=== PATIENT | male | born 1940 | race Asian ===

== ENCOUNTER 2020-04-18 20:22 | Inpatient (IN) | payer MEDICARE, BC ==
[~2020-04-18] VITALS: Ht 165.1 cm; Wt 67.1 kg
[2020-04-18] MEDS ORDERED: LOSARTAN POTASS25 MG ORAL (20:34)
[2020-04-18] MEDS ORDERED: ALPRAZOLAM0.25 MG ORAL (20:34)
[2020-04-18] MEDS ORDERED: Dicyclomine HCl 10mg/5ml oral soln ORAL ONE (20:45)
[2020-04-18] MEDS ORDERED: Lidocaine 2% Visc 15ml soln ORAL ONE (20:45)
[2020-04-18] MEDS ORDERED: Mylanta II UD 30ml ORAL ONE (20:45)
[2020-04-18] MEDS ORDERED: Omnipaque-300 100ml vial INJ PRN (20:45)
[2020-04-18] MEDS ORDERED: Morphine Sulfate 2mg/ml Inj(IV/IM USE ONLY) IVP ONE (20:45)
[2020-04-18 21:06] VITALS: BP 163/94
[2020-04-18 21:21] LABS: APPEARANCE,URINE CLEAR; BASOPHILS % (AUTO) 0.2 % (0.0-2.0); BILIRUBIN, URINE NEGATIVE (NEGATIVE); EOSINOPHILS % (AUTO) 0.1 % (0.0-3.0); GLUCOSE, URINE (UA) NEGATIVE (NEGATIVE); HEMATOCRIT 43.9 % (42.0-52.0); HEMOGLOBIN 14.5 G/DL (14.2-18.0); KETONES,URINE 2+ (NEGATIVE); LEUKOCYTE ESTERASE ,URINE NEGATIVE (NEGATIVE); LYMPHOCYTES % (AUTO) 10.1 % (20.0-45.0); MEAN CORPUSCULAR VOLUME 93 FL (80-99); MONOCYTES % (AUTO) 9.7 % (1.0-10.0); NEUTROPHILS % (AUTO) 79.8 % (45.0-75.0); PH,URINE 5 (4.5-8.0); PLATELET COUNT 137 K/UL (150-450); PROTEIN,URINE NEGATIVE (NEGATIVE); RED CELL DISTRIBUTION WIDTH 12.5 % (11.6-14.8); UROBILINOGEN,URINE NORMAL MG/DL (0.0-1.0); WHITE BLOOD COUNT 6.5 K/UL (4.8-10.8)
[2020-04-18 21:23] LABS: COLOR,URINE YELLOW
[2020-04-18 21:33] LABS: ANION GAP 9 mmol/L (5-15); BLOOD UREA NITROGEN 18 mg/dL (7-18); CALCIUM 9.1 MG/DL (8.5-10.1); CARBON DIOXIDE 26 MMOL/L (21-32); CHLORIDE 102 MMOL/L (98-107); CREATININE 1.7 MG/DL (0.55-1.30); SODIUM 137 MMOL/L (136-145)
[2020-04-18 21:38] LABS: ALANINE AMINOTRANSFERASE 35 U/L (12-78); ALBUMIN 3.9 G/DL (3.4-5.0); ALBUMIN/GLOBULIN RATIO 1.1 (1.0-2.7); ALKALINE PHOSPHATASE 72 U/L (46-116); ASPARTATE AMINO TRANSFERASE 27 U/L (15-37); BILIRUBIN,TOTAL 0.7 MG/DL (0.2-1.0)
[2020-04-18 21:41] LABS: NITRITE,URINE NEGATIVE (NEGATIVE)
--- NOTE | 2020-04-18 22:03 | Diagnostic Imaging Report ---
EXAM: CT Abdomen and Pelvis With Intravenous Contrast CLINICAL HISTORY: ABD PAIN TECHNIQUE: Axial computed tomography images of the abdomen and pelvis with intravenous contrast. CTDI is 4.5 mGy and DLP is 237.0 mGy-cm. One or more of the following dose reduction techniques were used: automated exposure control, adjustment of the mA and/or kV according to patient size, use of iterative reconstruction technique. COMPARISON: None. FINDINGS: Lung bases: Minimal posterior dependent atelectasis. ABDOMEN: Liver: Unremarkable. No mass. Gallbladder and bile ducts: Unremarkable. No calcified stones. No ductal dilation. Pancreas: Unremarkable. No mass. No ductal dilation. Spleen: Unremarkable. No splenomegaly. Adrenals: Unremarkable. No mass. Kidneys and ureters: Right perinephric stranding with mild right hydronephrosis. The right vertebral stranding with mild hydroureter with a stone measuring 3.4 mm at the right UV junction. No specific trace amount of left perinephric stranding otherwise normal left kidney. Stomach and bowel: Decompressed stomach otherwise stomach unremarkable. No hiatal hernia. Mild scattered diverticulosis with no signs of diverticulitis. No obstruction. PELVIS: Appendix: Normal appendix. Bladder: Unremarkable. No mass. Reproductive: Unremarkable as visualized. ABDOMEN and PELVIS: Intraperitoneal space: Unremarkable. No free air. No significant fluid collection. Bones/joints: Multilevel degenerative disease of the spine. Mild anterolisthesis of L4 and L5 with no pars defect. Extensive hypertrophic changes of bilateral facets and ligamenta flava at this level with spinal stenosis. No acute fracture. No dislocation. Soft tissues: Unremarkable. Vasculature: Atherosclerotic disease of aorta with no aneurysm. Lymph nodes: Unremarkable. No enlarged lymph nodes. IMPRESSION: 1. Right-sided hydronephrosis due to a 3.4 mm stone at the right UV junction. 2. No acute appendicitis. No bowel obstruction.
[2020-04-18] MEDS ORDERED: Tamsulosin 0.4mg cap ORAL ONE (22:15)
--- NOTE | 2020-04-18 22:20 | Emergency Room Report ---
History of Present Illness General Chief Complaint: Abdominal Pain Source: Patient Present Illness HPI 79-year-old male presents the ED complaining of abdominal pain and vomiting. Started today. Pain is lower, dull, 9 out of 10, nonradiating. Notes pain with urination. Denies fevers or chills. Denies chest pain or shortness of breath. Denies any diarrhea. No other aggravating relieving factors. 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 Patient History Past Medical History: DM, HTN Past Surgical History: none Pertinent Family History: none Social History: Denies: smoking, alcohol use, drug use Immunizations: UTD Reviewed Nursing Documentation: PMH: Agreed; PSxH: Agreed Nursing Documentation-PM Past Medical History: No History, Except For Hx Hypertension: Yes Hx Diabetes: Yes Review of Systems All Other Systems: negative except mentioned in HPI Physical Exam Vital Signs Date Time Temp Pulse Resp B/P (MAP) Pulse Ox O2 Delivery O2 Flow Rate FiO2 04/18/20 20:28 98.6 91 18 163/94 (117) 97 Room Air Sp02 EP Interpretation: reviewed, normal General Appearance: no apparent distress, alert, GCS 15, non-toxic Head: normocephalic, atraumatic Eyes: bilateral eye normal inspection, bilateral eye PERRL ENT: hearing grossly normal, normal pharynx, no angioedema, normal voice Neck: full range of motion, supple/symm/no masses Respiratory: chest non-tender, lungs clear, normal breath sounds, speaking full sentences Cardiovascular #1: regular rate, rhythm, no edema Cardiovascular #2: 2+ carotid (R), 2+ carotid (L), 2+ radial (R), 2+ radial (L) , 2+ dorsalis pedis (R), 2+ dorsalis pedis (L) Gastrointestinal: normal bowel sounds, soft, non-distended, no guarding, no rebound, tenderness Rectal: deferred Genitourinary: normal inspection, no CVA tenderness Musculoskeletal: back normal, normal range of motion, gait/station normal, non- tender Neurologic: alert, motor strength/tone normal, oriented x3, sensory intact, responsive, speech normal Psychiatric: judgement/insight normal, memory normal, mood/affect normal, no suicidal/homicidal ideation Reflexes: 3+ bicep (R), 3+ bicep (L), 3+ tricep (R), 3+ tricep (L), 3+ knee (R) , 3+ knee (L) Skin: no rash Lymphatic: no adenopathy Medical Decision Making Diagnostic Impression: Primary Impression: Kidney stone Additional Impression: Renal insufficiency ER Course Hospital Course 79 yo M with lower abd pain and vomting Differential diagnosis includes-appendicitis, cholecystitis, kidney stone, pyelonephritis Clinical course Patient placed on stretcher. After initial history and physical I ordered labs , IV fluids, pain medications and CT scan Labs - no leukocytosis, Cr 1.7, LFTs normal, UA - gross blood CT scan shows 3.4mm stone on R UVJ Dr Treadwell (urology) consulted. admitted to Dr wall service. I feel this is a highly complex case requiring extensive working including EKG/ Rhythm strip, Xray/CT/US, Blood/urine lab work, repeat exams while in ED, and administration of strong opiates/narcotics for pain control, admission to hospital or close patient follow up. Diagnosis - kidney stone, renal insufficiency admitted to floor in serious condition Labs Test 04/18/20 21:00 White Blood Count 6.5 K/UL (4.8-10.8) Red Blood Count 4.70 M/UL (4.70-6.10) Hemoglobin 14.5 G/DL (14.2-18.0) Hematocrit 43.9 % (42.0-52.0) Mean Corpuscular Volume 93 FL (80-99) Mean Corpuscular Hemoglobin 30.9 PG (27.0-31.0) Mean Corpuscular Hemoglobin Concent 33.1 G/DL (32.0-36.0) Red Cell Distribution Width 12.5 % (11.6-14.8) Platelet Count 137 K/UL (150-450) Mean Platelet Volume 6.5 FL (6.5-10.1) Neutrophils (%) (Auto) 79.8 % (45.0-75.0) Lymphocytes (%) (Auto) 10.1 % (20.0-45.0) Monocytes (%) (Auto) 9.7 % (1.0-10.0) Eosinophils (%) (Auto) 0.1 % (0.0-3.0) Basophils (%) (Auto) 0.2 % (0.0-2.0) Urine Color Yellow Urine Appearance Clear Urine pH 5 (4.5-8.0) Urine Specific [place] 1.025 (1.005-1.035) Urine Protein Negative (NEGATIVE) Urine Glucose (UA) Negative (NEGATIVE) Urine Ketones 2+ (NEGATIVE) Urine Blood 4+ (NEGATIVE) Urine Nitrite Negative (NEGATIVE) Urine Bilirubin Negative (NEGATIVE) Urine Urobilinogen Normal MG/DL (0.0-1.0) Urine Leukocyte Esterase Negative (NEGATIVE) Urine RBC 0-2 /HPF (0 - 0) Urine WBC 0 /HPF (0 - 0) Urine Squamous Epithelial Cells None /LPF (NONE/OCC) Urine Bacteria Occasional /HPF (NONE) Sodium Level 137 MMOL/L (136-145) Potassium Level 4.0 MMOL/L (3.5-5.1) Chloride Level 102 MMOL/L (98-107) Carbon Dioxide Level 26 MMOL/L (21-32) Anion Gap 9 mmol/L (5-15) Blood Urea Nitrogen 18 mg/dL (7-18) Creatinine 1.7 MG/DL (0.55-1.30) Estimat Glomerular Filtration Rate 39.3 mL/min (>60) Glucose Level 119 MG/DL (74-106) Calcium Level 9.1 MG/DL (8.5-10.1) Total Bilirubin 0.7 MG/DL (0.2-1.0) Aspartate Amino Transf (AST/SGOT) 27 U/L (15-37) Alanine Aminotransferase (ALT/SGPT) 35 U/L (12-78) Alkaline Phosphatase 72 U/L (46-116) Total Protein 7.3 G/DL (6.4-8.2) Albumin 3.9 G/DL (3.4-5.0) Globulin 3.4 g/dL Albumin/Globulin Ratio 1.1 (1.0-2.7) Lipase 129 U/L (73-393) CT/MRI/US Diagnostic Results CT/MRI/US Diagnostic Results : Imaging Test Ordered: CT A/P Impression TECHNIQUE: Axial computed tomography images of the abdomen and pelvis with intravenous contrast. CTDI is 4.5 mGy and DLP is 237.0 mGy-cm. One or more of the following dose reduction techniques were used: automated exposure control, adjustment of the mA and/or kV according to patient size, use of iterative reconstruction technique. COMPARISON: None. FINDINGS: Lung bases: Minimal posterior dependent atelectasis. ABDOMEN: Liver: Unremarkable. No mass. Gallbladder and bile ducts: Unremarkable. No calcified stones. No ductal dilation. Pancreas: Unremarkable. No mass. No ductal dilation. Spleen: Unremarkable. No splenomegaly. Adrenals: Unremarkable. No mass. Kidneys and ureters: Right perinephric stranding with mild right hydronephrosis. The right vertebral stranding with mild hydroureter with a stone measuring 3.4 mm at the right UV junction. No specific trace amount of left perinephric stranding otherwise normal left kidney. Stomach and bowel: Decompressed stomach otherwise stomach unremarkable. No hiatal hernia. Mild scattered diverticulosis with no signs of diverticulitis. No obstruction. PELVIS: Appendix: Normal appendix. Bladder: Unremarkable. No mass. Reproductive: Unremarkable as visualized. ABDOMEN and PELVIS: Intraperitoneal space: Unremarkable. No free air. No significant fluid collection. Bones/joints: Multilevel degenerative disease of the spine. Mild anterolisthesis of L4 and L5 with no pars defect. Extensive hypertrophic changes of bilateral facets and ligamenta flava at this level with spinal stenosis. No acute fracture. No dislocation. Soft tissues: Unremarkable. Vasculature: Atherosclerotic disease of aorta with no aneurysm. Lymph nodes: Unremarkable. No enlarged lymph nodes. IMPRESSION: 1. Right-sided hydronephrosis due to a 3.4 mm stone at the right UV junction. 2. No acute appendicitis. No bowel obstruction. Last Vital Signs Date Time Temp Pulse Resp B/P (MAP) Pulse Ox O2 Delivery O2 Flow Rate FiO2 04/18/20 21:06 91 18 Room Air 04/18/20 21:06 98.6 163/94 97 Status: improved Disposition: ADMITTED INPATIENT Condition: Serious Referrals: NON PHYSICIAN (PCP) Ronak Rubio MD Apr 18, 2020 22:20
[2020-04-18 22:28] VITALS: BP 154/90
[2020-04-18] MEDS ORDERED: HydrALAZINE 25mg tab ORAL PRN (23:00)
[2020-04-18] MEDS ORDERED: Hydromorphone 0.5mg/0.5ml inj IVP PRN (23:00)
[2020-04-18 23:10] VITALS: BP 157/88
[2020-04-18] MEDS ORDERED: Morphine Sulfate 2mg/ml Inj(IV/IM USE ONLY) IVP PRN (23:45)
[2020-04-19] VITALS: BP 161/90
[2020-04-19] MEDS ORDERED: D5NS 1,000 ML IV SCH
[2020-04-19 04:00] VITALS: BP 117/65
[2020-04-19 06:40] LABS: BASOPHILS % (AUTO) 0.4 % (0.0-2.0); EOSINOPHILS % (AUTO) 0.2 % (0.0-3.0); HEMATOCRIT 38.9 % (42.0-52.0); HEMOGLOBIN 12.8 G/DL (14.2-18.0); LYMPHOCYTES % (AUTO) 12.9 % (20.0-45.0); MEAN CORPUSCULAR VOLUME 94 FL (80-99); MONOCYTES % (AUTO) 12.9 % (1.0-10.0); NEUTROPHILS % (AUTO) 73.5 % (45.0-75.0); PLATELET COUNT 125 K/UL (150-450); RED BLOOD COUNT 4.16 M/UL (4.70-6.10); RED CELL DISTRIBUTION WIDTH 11.5 % (11.6-14.8); WHITE BLOOD COUNT 4.6 K/UL (4.8-10.8)
[2020-04-19 07:11] LABS: ALANINE AMINOTRANSFERASE 35 U/L (12-78); ALBUMIN 2.9 G/DL (3.4-5.0); ALKALINE PHOSPHATASE 56 U/L (46-116); ANION GAP 7 mmol/L (5-15); ASPARTATE AMINO TRANSFERASE 28 U/L (15-37); BILIRUBIN,TOTAL 0.8 MG/DL (0.2-1.0); BLOOD UREA NITROGEN 18 mg/dL (7-18); CALCIUM 8.1 MG/DL (8.5-10.1); CARBON DIOXIDE 25 MMOL/L (21-32); CHLORIDE 108 MMOL/L (98-107); CHOLESTEROL 139 MG/DL (< 200); CREATININE 1.7 MG/DL (0.55-1.30); HDL CHOLESTEROL 46 MG/DL (40-60); PHOSPHORUS 3.1 MG/DL (2.5-4.9); POTASSIUM 3.9 MMOL/L (3.5-5.1); SODIUM 140 MMOL/L (136-145); TRIGLYCERIDES 38 MG/DL (30-150)
[2020-04-19 08:00] VITALS: BP 130/76
[2020-04-19] MEDS: Tamsulosin 0.4mg cap ORAL SCH ×2 (08:17→18:21)
[2020-04-19] MEDS: Pantoprazole Inj IVP SCH ×2 (08:17→20:24)
--- NOTE | 2020-04-19 09:17 | Consultation ---
Consult Note Consult Note I am asked to evaluate the patient at the request of Dr. Downs for renal failure. Patient is [place] speaking. Interviewed via food service utility worker. Patient relates she has history of hypertension for the past 2 years. He does not know the name of medication that he is taking. Patient examined. Data reviewed. This is his first hospitalization here at [facility]. Emergency room note: Chief Complaint: Abdominal Pain Source: Patient 79-year-old male presents the ED complaining of abdominal pain and vomiting. Started today. Pain is lower, dull, 9 out of 10, nonradiating. Notes pain with urination. Denies fevers or chills. Denies chest pain or shortness of breath. Denies any diarrhea. No other aggravating relieving factors. Denies any other associated symptoms Allergies: No Known Allergies (Unverified , 04/18/20) COVID-19 Screening Contact w/high risk pt: No Experienced COVID-19 symptoms?: No COVID-19 Testing performed HUMAN SERVICE SPECIALIST: No Past Medical History: DM, HTN Past Medical History: No History, Except For Hx Hypertension: Yes Hx Diabetes: Yes, patient denies history of diabetes mellitus, hemoglobin A1c is within normal limits PHYSICAL EXAMINATION: VITAL SIGNS: Temperature 98, pulse 95, blood pressure 133/76. GENERAL APPEARANCE: No acute distress. HEENT: [place] conjunctivae. HEART: Normal rate. LUNGS: Clear. ABDOMEN: Soft. No costovertebral angle tenderness. EXTREMITIES: No edema. LABORATORY AND DIAGNOSTIC DATA: The patient had a CT scan of the abdomen and pelvis that showed right-sided hydronephrosis with a 2.4 mm stone in the right UV junction. No appendicitis. No bowel obstruction. Sodium 140, potassium 3.9, chloride 108, bicarb 25, BUN 18, creatinine 1.7, glucose is 103, albumin is 2.9. UA showed no wbc, has 4+ blood and ketones 2+. . Assessment/Plan Renal failure: Most likely acute on chronic. History of hypertension. Possible hypertensive nephrosclerosis. Right UV junction 3.4 mm stone. Suggestion: Hydrate Flomax The blood pressure in check Check hemoglobin A1c Pain medication Urology evaluation Per orders CT IMPRESSION: 1. Right-sided hydronephrosis due to a 3.4 mm stone at the right UV junction. 2. No acute appendicitis. No bowel obstruction. Theron Coronel MD Apr 19, 2020 09:17
[2020-04-19] MEDS: D5NS 1,000 ML IV SCH ×2 (11:31→18:21)
[2020-04-19 12:00] VITALS: BP 147/81
--- NOTE | 2020-04-19 13:20 | Diagnostic Imaging Report ---
EXAM: ULTRASOUND US ABD Complete CLINICAL HISTORY: Reason For Exam: ABD PAIN. COMPARISON: None TECHNIQUE: Ultrasound examination of the abdomen includes grayscale images, and color and spectral doppler analysis. FINDINGS: The liver and spleen are homogeneous. The gallbladder is without sludge or stone. Common bile duct measures 4 mm. The pancreas is unremarkable to the extent visualized. There is mild right hydronephrosis. Left kidney appears unremarkable. Aorta and cava are within normal limits. IMPRESSION: MILD RIGHT HYDRONEPHROSIS.
--- NOTE | 2020-04-19 13:48 | Anethesia Preoperative Eval ---
Anesthesia Pre-op PMH/ROS General Date of Evaluation: Apr 19, 2020 Time of Evaluation: 13:48 Anesthesiologist: Terrell ASA Score: ASA 2 Mallampati Score Class I : Soft palate, uvula, fauces, pillars visible Class II: Soft palate, uvula, fauces visible Class III: Soft palate, base of uvula visible Class IV: Only hard plate visible Mallampati Classification: Class II Allergies: Coded Allergies: No Known Allergies (Unverified , 04/18/20) Patient NPO?: Yes Anesthesia Pre-op Phys. Exam Physician Exam Last Vital Signs Date Time Temp Pulse Resp B/P (MAP) Pulse Ox O2 Delivery O2 Flow Rate FiO2 04/19/20 12:00 97.0 96 18 147/81 (103) 94 04/19/20 09:00 Room Air Airway Exam Mallampati Score: Class II Anesthesia Pre-op A/P Labs Hematology Test 04/18/20 21:00 04/19/20 05:50 White Blood Count 6.5 K/UL (4.8-10.8) 4.6 K/UL (4.8-10.8) L Red Blood Count 4.70 M/UL (4.70-6.10) 4.16 M/UL (4.70-6.10) L Hemoglobin 14.5 G/DL (14.2-18.0) 12.8 G/DL (14.2-18.0) L Hematocrit 43.9 % (42.0-52.0) 38.9 % (42.0-52.0) L Mean Corpuscular Volume 93 FL (80-99) 94 FL (80-99) Mean Corpuscular Hemoglobin 30.9 PG (27.0-31.0) 30.8 PG (27.0-31.0) Mean Corpuscular Hemoglobin Concent 33.1 G/DL (32.0-36.0) 33.0 G/DL (32.0-36.0) Red Cell Distribution Width 12.5 % (11.6-14.8) 11.5 % (11.6-14.8) L Platelet Count 137 K/UL (150-450) L 125 K/UL (150-450) L Mean Platelet Volume 6.5 FL (6.5-10.1) 7.0 FL (6.5-10.1) Neutrophils (%) (Auto) 79.8 % (45.0-75.0) H 73.5 % (45.0-75.0) Lymphocytes (%) (Auto) 10.1 % (20.0-45.0) L 12.9 % (20.0-45.0) L Monocytes (%) (Auto) 9.7 % (1.0-10.0) 12.9 % (1.0-10.0) H Eosinophils (%) (Auto) 0.1 % (0.0-3.0) 0.2 % (0.0-3.0) Basophils (%) (Auto) 0.2 % (0.0-2.0) 0.4 % (0.0-2.0) Chemistry Test 04/18/20 21:00 04/19/20 05:50 Sodium Level 137 MMOL/L (136-145) 140 MMOL/L (136-145) Potassium Level 4.0 MMOL/L (3.5-5.1) 3.9 MMOL/L (3.5-5.1) Chloride Level 102 MMOL/L (98-107) 108 MMOL/L (98-107) H Carbon Dioxide Level 26 MMOL/L (21-32) 25 MMOL/L (21-32) Anion Gap 9 mmol/L (5-15) 7 mmol/L (5-15) Blood Urea Nitrogen 18 mg/dL (7-18) 18 mg/dL (7-18) Creatinine 1.7 MG/DL (0.55-1.30) H 1.7 MG/DL (0.55-1.30) H Estimat Glomerular Filtration Rate 39.3 mL/min (>60) 39.3 mL/min (>60) Glucose Level 119 MG/DL (74-106) H 103 MG/DL (74-106) Calcium Level 9.1 MG/DL (8.5-10.1) 8.1 MG/DL (8.5-10.1) L Total Bilirubin 0.7 MG/DL (0.2-1.0) 0.8 MG/DL (0.2-1.0) Aspartate Amino Transf (AST/SGOT) 27 U/L (15-37) 28 U/L (15-37) Alanine Aminotransferase (ALT/SGPT) 35 U/L (12-78) 35 U/L (12-78) Alkaline Phosphatase 72 U/L (46-116) 56 U/L (46-116) Total Protein 7.3 G/DL (6.4-8.2) 5.8 G/DL (6.4-8.2) L Albumin 3.9 G/DL (3.4-5.0) 2.9 G/DL (3.4-5.0) L Globulin 3.4 g/dL 2.9 g/dL Albumin/Globulin Ratio 1.1 (1.0-2.7) 1.0 (1.0-2.7) Lipase 129 U/L (73-393) Hemoglobin A1c 5.5 % (4.3-6.0) Uric Acid 5.3 MG/DL (2.6-7.2) Phosphorus Level 3.1 MG/DL (2.5-4.9) Magnesium Level 1.9 MG/DL (1.8-2.4) C-Reactive Protein, Quantitative 1.7 mg/dL (0.00-0.90) H Pro-B-Type Natriuretic Peptide 340 pg/mL (0-125) H Triglycerides Level 38 MG/DL (30-150) Cholesterol Level 139 MG/DL (< 200) LDL Cholesterol 86 mg/dL (<100) HDL Cholesterol 46 MG/DL (40-60) Cholesterol/HDL Ratio 3.0 (3.3-4.4) L Thyroid Stimulating Hormone (TSH) 0.646 uiU/mL (0.358-3.740) Keegan Tejada MD Apr 19, 2020 13:48
--- NOTE | 2020-04-19 14:27 | Anethesia Preoperative Eval ---
Anesthesia Pre-op PMH/ROS General Date of Evaluation: Apr 19, 2020 Time of Evaluation: 14:23 Anesthesiologist: Terrell ASA Score: ASA 2 Mallampati Score Class I : Soft palate, uvula, fauces, pillars visible Class II: Soft palate, uvula, fauces visible Class III: Soft palate, base of uvula visible Class IV: Only hard plate visible Mallampati Classification: Class II Surgeon: Eben Diagnosis: L kidney stone Surgical Procedure: Lithotrypsy Anesthesia History: none Allergies: Coded Allergies: No Known Allergies (Unverified , 04/18/20) Medications: see eMAR Patient NPO?: Yes Past Medical History Cardiovascular: Reports: HTN - stable on meds; Denies: CAD, OR, valve dz, arrhythmia, other Pulmonary: Denies: asthma, COPD, JACKY, other Gastrointestinal/Genitourinary: Reports: GERD - mild, CRI - acute vs chronic; Denies: ESRD, other Neurologic/Psychiatric: Reports: depression/anxiety; Denies: dementia, CVA, TIA, other Endocrine: Denies: DM, hypothyroidism, steroids, other HEENT: Denies: cataract (L), cataract (R), glaucoma, [place] (L), [place] (R), other Hematology/Immune: Denies: anemia, DVT, bleeding disorder, other Musculoskeletal/Integumentary: Denies: OA, RA, DJD, DDD, edema, other PMH Narrative: as above admitted for acute abdominal pain PSxH Narrative: none Anesthesia Pre-op Phys. Exam Physician Exam Last Vital Signs Date Time Temp Pulse Resp B/P (MAP) Pulse Ox O2 Delivery O2 Flow Rate FiO2 04/19/20 12:00 97.0 96 18 147/81 (103) 94 04/19/20 09:00 Room Air Constitutional: NAD Neurologic: CN 2-12 intact Cardiovascular: RRR, no M/R/G Respiratory: CTA Gastrointestinal: S/NT/ND Airway Exam Mallampati Score: Class II MO: full Neck: stiff ROM: limited Teeth: intact Dentures: no upper, no lower Anesthesia Pre-op A/P Labs Hematology Test 04/18/20 21:00 04/19/20 05:50 White Blood Count 6.5 K/UL (4.8-10.8) 4.6 K/UL (4.8-10.8) L Red Blood Count 4.70 M/UL (4.70-6.10) 4.16 M/UL (4.70-6.10) L Hemoglobin 14.5 G/DL (14.2-18.0) 12.8 G/DL (14.2-18.0) L Hematocrit 43.9 % (42.0-52.0) 38.9 % (42.0-52.0) L Mean Corpuscular Volume 93 FL (80-99) 94 FL (80-99) Mean Corpuscular Hemoglobin 30.9 PG (27.0-31.0) 30.8 PG (27.0-31.0) Mean Corpuscular Hemoglobin Concent 33.1 G/DL (32.0-36.0) 33.0 G/DL (32.0-36.0) Red Cell Distribution Width 12.5 % (11.6-14.8) 11.5 % (11.6-14.8) L Platelet Count 137 K/UL (150-450) L 125 K/UL (150-450) L Mean Platelet Volume 6.5 FL (6.5-10.1) 7.0 FL (6.5-10.1) Neutrophils (%) (Auto) 79.8 % (45.0-75.0) H 73.5 % (45.0-75.0) Lymphocytes (%) (Auto) 10.1 % (20.0-45.0) L 12.9 % (20.0-45.0) L Monocytes (%) (Auto) 9.7 % (1.0-10.0) 12.9 % (1.0-10.0) H Eosinophils (%) (Auto) 0.1 % (0.0-3.0) 0.2 % (0.0-3.0) Basophils (%) (Auto) 0.2 % (0.0-2.0) 0.4 % (0.0-2.0) Chemistry Test 04/18/20 21:00 04/19/20 05:50 Sodium Level 137 MMOL/L (136-145) 140 MMOL/L (136-145) Potassium Level 4.0 MMOL/L (3.5-5.1) 3.9 MMOL/L (3.5-5.1) Chloride Level 102 MMOL/L (98-107) 108 MMOL/L (98-107) H Carbon Dioxide Level 26 MMOL/L (21-32) 25 MMOL/L (21-32) Anion Gap 9 mmol/L (5-15) 7 mmol/L (5-15) Blood Urea Nitrogen 18 mg/dL (7-18) 18 mg/dL (7-18) Creatinine 1.7 MG/DL (0.55-1.30) H 1.7 MG/DL (0.55-1.30) H Estimat Glomerular Filtration Rate 39.3 mL/min (>60) 39.3 mL/min (>60) Glucose Level 119 MG/DL (74-106) H 103 MG/DL (74-106) Calcium Level 9.1 MG/DL (8.5-10.1) 8.1 MG/DL (8.5-10.1) L Total Bilirubin 0.7 MG/DL (0.2-1.0) 0.8 MG/DL (0.2-1.0) Aspartate Amino Transf (AST/SGOT) 27 U/L (15-37) 28 U/L (15-37) Alanine Aminotransferase (ALT/SGPT) 35 U/L (12-78) 35 U/L (12-78) Alkaline Phosphatase 72 U/L (46-116) 56 U/L (46-116) Total Protein 7.3 G/DL (6.4-8.2) 5.8 G/DL (6.4-8.2) L Albumin 3.9 G/DL (3.4-5.0) 2.9 G/DL (3.4-5.0) L Globulin 3.4 g/dL 2.9 g/dL Albumin/Globulin Ratio 1.1 (1.0-2.7) 1.0 (1.0-2.7) Lipase 129 U/L (73-393) Hemoglobin A1c 5.5 % (4.3-6.0) Uric Acid 5.3 MG/DL (2.6-7.2) Phosphorus Level 3.1 MG/DL (2.5-4.9) Magnesium Level 1.9 MG/DL (1.8-2.4) C-Reactive Protein, Quantitative 1.7 mg/dL (0.00-0.90) H Pro-B-Type Natriuretic Peptide 340 pg/mL (0-125) H Triglycerides Level 38 MG/DL (30-150) Cholesterol Level 139 MG/DL (< 200) LDL Cholesterol 86 mg/dL (<100) HDL Cholesterol 46 MG/DL (40-60) Cholesterol/HDL Ratio 3.0 (3.3-4.4) L Thyroid Stimulating Hormone (TSH) 0.646 uiU/mL (0.358-3.740) Risk Assessment & Plan Assessment: ASA 2 Plan: Keegan Weinstein MD Apr 19, 2020 14:26
[2020-04-19 16:00] VITALS: BP 116/72
--- NOTE | 2020-04-19 16:45 | Consultation ---
DATE OF CONSULTATION: 04/19/2020 REFERRING PHYSICIAN: John Mason M.D. CHIEF COMPLAINT: Abdominal pain. HISTORY OF PRESENT ILLNESS: This is a very pleasant 79-year-old male who came to the hospital with complaint of abdominal pain, 9/10, mainly on the left side. The patient had no fevers. No chills. No nausea. No vomiting. No dysphagia. No odynophagia. PAST MEDICAL HISTORY: Hypertension. ALLERGIES: No known allergies. MEDICATIONS: . SOCIAL HISTORY: The patient denies any recent tobacco, alcohol, or drug abuse. FAMILY HISTORY: Noncontributory. REVIEW OF SYSTEMS: Limited. PHYSICAL EXAMINATION: VITAL SIGNS: Temperature is 98, pulse is 95, respirations 20, blood pressure is 130/70. HEENT: Normocephalic and atraumatic. Sclerae anicteric. NECK: Supple. No evidence of obvious lymphadenopathy. CARDIOVASCULAR: Regular rate and rhythm. Plus S1 and S2. LUNGS: Clear to auscultation bilaterally. ABDOMEN: Positive bowel sounds. Soft. There is tenderness to palpation in the left upper quadrant. No rebound. No guarding. No peritoneal sign. EXTREMITIES: No cyanosis, clubbing, or edema. LABORATORY DATA: White count is 4.6, hemoglobin 12, hematocrit 38, platelet count is 125. Sodium 140, potassium 3.9, creatinine is 1.7, albumin is 2.9. IMAGING STUDIES: The patient had a CT of the abdomen and pelvis done without contrast. It shows right-sided hydronephrosis due to his kidney stones. Liver was unremarkable. ASSESSMENT AND PLAN: This is a 79-year-old male with abdominal pain, most likely secondary to kidney stones, but also the patient has evidence of renal insufficiency with creatinine of 1.7, hypoalbuminemia with albumin of 2.9, thrombocytopenia with platelet count of 125. The plan is to do an abdominal ultrasound for further evaluation of low albumin and thrombocytopenia, rule out liver disease. Consider sending hepatitis panel. Repeat labs for tomorrow. Follow urology recommendation. GI procedure on hold for now. I want to thank Dr. John Mason for this kind referral. Hardik Ventura M.D. DR: LAWRENCE JOB#: [id number] CC: John Mason M.D.; Fax#: [phone]
--- NOTE | 2020-04-19 17:30 | Consultation ---
DATE OF CONSULTATION: 04/19/2020 CONSULTING PHYSICIAN: Kavon Treadwell MD. REASON FOR CONSULTATION: Right renal colic. HISTORY OF PRESENT ILLNESS: The patient was admitted through the emergency room and had a CT urogram that showed mm stone in the mid right ureter with nausea, vomiting, and acute renal failure. The patient had the symptoms for several days and now is admitted for hydration and possible surgery. PAST MEDICAL HISTORY: Significant for diabetes and hypertension. REVIEW OF SYMPTOMS: Done. PHYSICAL EXAMINATION: He is currently afebrile. Vital signs are stable. Mild right flank tenderness. DIAGNOSTIC DATA: CT urogram showed mm stone in the right UVJ. ASSESSMENT AND PLAN: The patient has obstructing stone with mild renal insufficiency. We are going to keep him NPO and we will do surgical procedure to remove the stone and stent placement. Kavon Treadwell M.D. DR: JENNIFER JOB#: [id number] CC:
--- NOTE | 2020-04-19 19:30 | Consultation ---
DATE OF CONSULTATION: 04/19/2020 INFECTIOUS DISEASE CONSULT CONSULTING PHYSICIAN: Abraham Oneal M.D. PRIMARY ATTENDING PHYSICIAN: John Mason M.D. REASON FOR CONSULTATION: Nephrolithiasis and hydronephrosis. HISTORY OF PRESENT ILLNESS: This is a 79-year-old [place]ian male admitted yesterday from home complaining of lower abdominal pain and vomiting. No fever and no leukocytosis. PAST MEDICAL HISTORY: Has history of kidney stone 2 years ago, diabetes mellitus, hypertension. ALLERGIES: No known drug allergy. MEDICATIONS: Getting Flomax, Zofran, Tylenol, morphine, hydralazine. SOCIAL HISTORY: . No history of alcohol, drug abuse, or smoking. REVIEW OF SYSTEMS: No fever. No chills. No nausea or vomiting today. Has suprapubic pain. No dysuria. PHYSICAL EXAMINATION: VITAL SIGNS: Temperature 98, pulse 95, blood pressure 133/76. GENERAL APPEARANCE: No acute distress. HEENT: Gaffney conjunctivae. HEART: Normal rate. LUNGS: Clear. ABDOMEN: Soft. No costovertebral angle tenderness. EXTREMITIES: No edema. LABORATORY AND DIAGNOSTIC DATA: The patient had a CT scan of the abdomen and pelvis that showed right-sided hydronephrosis with a 2.4 mm stone in the right UV junction. No appendicitis. No bowel obstruction. Sodium 140, potassium 3.9, chloride 108, bicarb 25, BUN 18, creatinine 1.7, glucose is 103, albumin is 2.9. UA showed no wbc, has 4+ blood and ketones 2+. IMPRESSION: 1. Right hydronephrosis secondary to UV junction stone, has nephrolithiasis. 2. Hypertension. 3. Renal failure, acute versus chronic. 4. Diabetes mellitus. RECOMMENDATION: Can observe the patient off antibiotic. The patient will have urological procedure tomorrow with likely extracorporeal shockwave lithotripsy. At the end of my exam, I thank Dr. Mason for involving me in the care of this patient. Abraham Oneal M.D. DR: /Lou JOB#: [id number] CC: SAMMY
[2020-04-19 20:00] VITALS: BP 136/80
[2020-04-20] VITALS (14 sets, daily range): BP systolic 123–169; BP diastolic 74–93
--- NOTE | 2020-04-20 02:30 | History and Physical Report ---
DATE OF ADMISSION: 04/18/2020 HISTORY OF PRESENT ILLNESS: The patient was admitted for abdominal pain, renal insufficiency, and urinary tract infection. The patient was also found to have 3.4 mm stone on the right, abdominal pain for two days and nausea as well. The patient was also admitted for acute renal failure and vomiting. The patient also complains of abdominal pain for two days as well as nausea and vomiting. The patient has flank pain. Denies vomiting or nausea. Abdominal pain has been going on for two days. Denies fever or chills. Denies shortness of breath. Denies cough. Denies fever or orthopnea. PAST MEDICAL HISTORY: Hypertension and anxiety. PAST SURGICAL HISTORY: None. MEDICATIONS: Xanax and losartan. ALLERGIES: No known allergies. FAMILY HISTORY: Noncontributory. SOCIAL HISTORY: Denies history of smoking. Denies history of alcohol abuse. Denies history of drug abuse. REVIEW OF SYSTEMS: HEENT: Denies headaches . RESPIRATORY: Denies shortness of breath. Denies cough. CARDIOVASCULAR: Denies chest pain. Denies orthopnea. GASTROINTESTINAL: Reports abdominal pain for two days associated with nausea. No vomiting. No constipation. EXTREMITIES: Denies pain in lower extremities. CENTRAL NERVOUS SYSTEM: Denies change in vision or speech pattern. Denies weakness. PHYSICAL EXAMINATION: VITAL SIGNS: Temperature 98, pulse 95, blood pressure 130/76. HEENT: PERRLA. NECK: Supple. No lymphadenopathy. CHEST: Clear to auscultation. CARDIOVASCULAR: Regular rate and rhythm. GASTROINTESTINAL: Epigastric flank tenderness. No rebound. Abdomen is soft EXTREMITIES: No edema. Moves all extremities. NEUROLOGIC: Sensory intact to light touch. Reflexes equal on both sides. LABORATORY AND DIAGNOSTIC DATA: Sodium is 137, potassium 4, BUN of 18, creatinine of 1.7, glucose of 119. WBC of 6.5, hemoglobin of 14.5, platelets 137. ASSESSMENT AND PLAN: 1. Abdominal pain. 2. Kidney stone 3.4 mm. 3. Acute renal failure. 4. Vomiting. I have consulted Dr. Coronel, Dr. Abraham Oneal, Dr. Ventura, and Dr. Treadwell to help with the above-mentioned abnormalities, abnormal imaging, abnormal labs, as well as abnormal symptoms. Antibiotics if any per Infectious Diseases. Ali Nicholas Mason DR: Cristo JOB#: [id number] CC:
[2020-04-20 06:34] LABS: BASOPHILS % (AUTO) 0.4 % (0.0-2.0); EOSINOPHILS % (AUTO) 0.9 % (0.0-3.0); HEMOGLOBIN 12.7 G/DL (14.2-18.0); LYMPHOCYTES % (AUTO) 20.6 % (20.0-45.0); MEAN CORPUSCULAR VOLUME 94 FL (80-99); MONOCYTES % (AUTO) 12.6 % (1.0-10.0); NEUTROPHILS % (AUTO) 65.6 % (45.0-75.0); PLATELET COUNT 113 K/UL (150-450); RED BLOOD COUNT 4.13 M/UL (4.70-6.10); RED CELL DISTRIBUTION WIDTH 11.8 % (11.6-14.8); WHITE BLOOD COUNT 3.6 K/UL (4.8-10.8)
[2020-04-20 06:59] LABS: ALANINE AMINOTRANSFERASE 34 U/L (12-78); ALKALINE PHOSPHATASE 54 U/L (46-116); ANION GAP 5 mmol/L (5-15); ASPARTATE AMINO TRANSFERASE 43 U/L (15-37); BILIRUBIN,TOTAL 0.6 MG/DL (0.2-1.0); BLOOD UREA NITROGEN 13 mg/dL (7-18); CALCIUM 7.9 MG/DL (8.5-10.1); CARBON DIOXIDE 28 MMOL/L (21-32); CHLORIDE 111 MMOL/L (98-107); CREATININE 1.3 MG/DL (0.55-1.30); SODIUM 144 MMOL/L (136-145)
--- NOTE | 2020-04-20 08:08 | General Progress Note ---
Assessment/Plan Problem List: (1) Abdominal pain ICD Codes: R10.9 - Unspecified abdominal pain SNOMED: 65073881 (2) Renal insufficiency ICD Codes: N28.9 - Disorder of kidney and ureter, unspecified SNOMED: 086842376, 956775337 (3) Kidney stone ICD Codes: N20.0 - Calculus of kidney SNOMED: 23144703 (4) Thrombocytopenia ICD Codes: D69.6 - Thrombocytopenia, unspecified SNOMED: 194800610 Assessment/Plan: us reviewed pending urological procedure today to remove kidney stones will fu Subjective ROS Limited/Unobtainable: Yes Allergies: Coded Allergies: No Known Allergies (Unverified , 04/18/20) Objective Last 24 Hour Vital Signs Date Time Temp Pulse Resp B/P (MAP) Pulse Ox O2 Delivery O2 Flow Rate FiO2 04/20/20 04:00 96.3 90 20 132/77 (95) 96 04/20/20 00:00 97.9 82 18 125/79 (94) 95 04/19/20 20:53 Room Air 04/19/20 20:00 98.4 98 20 136/80 (98) 94 04/19/20 16:00 97.2 81 18 116/72 (87) 94 04/19/20 12:00 97.0 96 18 147/81 (103) 94 04/19/20 09:00 Room Air Intake and Output 04/19/20 04/20/20 19:00 07:00 Intake Total 1005 ml 885 ml Balance 1005 ml 885 ml Intake Oral 480 ml IV Total 525 ml 525 ml Other 360 ml # Voids 3 2 Laboratory Tests 04/20/20 05:40: White Blood Count 3.6L, Red Blood Count 4.13L, Hemoglobin 12.7L, Hematocrit 39.0L, Mean Corpuscular Volume 94, Mean Corpuscular Hemoglobin 30.6, Mean Corpuscular Hemoglobin Concent 32.5, Red Cell Distribution Width 11.8, Platelet Count 113L, Mean Platelet Volume 6.0L, Neutrophils (%) (Auto) 65.6, Lymphocytes (%) (Auto) 20.6, Monocytes (%) (Auto) 12.6H, Eosinophils (%) (Auto) 0.9, Basophils (%) (Auto) 0.4, Sodium Level 144, Potassium Level 4.0, Chloride Level 111H, Carbon Dioxide Level 28, Anion Gap 5, Blood Urea Nitrogen 13, Creatinine 1.3, Estimat Glomerular Filtration Rate 53.5, Glucose Level 105, Calcium Level 7.9L, Total Bilirubin 0.6, Aspartate Amino Transf (AST/SGOT) 43H, Alanine Aminotransferase (ALT/SGPT) 34, Alkaline Phosphatase 54, Total Protein 6.0L, Albumin 3.0L, Globulin 3.0, Albumin/Globulin Ratio 1.0, Hepatitis A IgM Antibody [Pending], Hepatitis B Surface Antigen [Pending], Hepatitis B Core IgM Antibody [Pending], Hepatitis C Antibody [Pending] Height (Feet): 5 Height (Inches): 5.00 Weight (Pounds): 148 General Appearance: alert EENT: normal ENT inspection Neck: supple Cardiovascular: normal rate Respiratory/Chest: decreased breath sounds Abdomen: normal bowel sounds, non tender, soft Extremities: non-tender Hardik Ventura MD Apr 20, 2020 08:08
[2020-04-20] MEDS: Tamsulosin 0.4mg cap ORAL SCH ×2 (08:38→17:34)
[2020-04-20] MEDS: D5NS 1,000 ML IV SCH (08:44)
[2020-04-20] MEDS: Pantoprazole Inj IVP SCH (08:44)
[2020-04-20] MEDS ORDERED: Iothalamate Meglumine 60% 30ML INJ ONE (10:49)
[2020-04-20] MEDS ORDERED: Rocuronium Bromide 50mg/5ml Inj IV ONE (12:03)
[2020-04-20] MEDS ORDERED: fentaNYL 100 mcg/2 mL IV ONE ×2 (12:10→13:02)
--- NOTE | 2020-04-20 12:12 | Pre-Procedure Note/Attestation ---
Pre-Procedure Note/Attestation Complete Prior to Procedure Planned Procedure: right Procedure Narrative: eswl rirs right stent placement Indications for Procedure Pre-Operative Diagnosis: right ureteral and kidney stone Attestation I attest that I discussed the nature of the procedure; its benefits; risks and complications; and alternatives (and the risks and benefits of such alternatives ), prior to the procedure, with the patient (or the patient's legal correspondence representative). I attest that, if there was a reasonable possibility of needing a blood transfusion, the patient (or the patient's legal correspondence representative) was given the [facility] standardized written summary, pursuant to the [place] Blood Safety Act ([place] Health and Safety Code # 1645, as amended). I attest that I re-evaluated the patient just prior to the surgery and that there has been no change in the patient's H&P, except as documented below: Kavon Treadwell MD Apr 20, 2020 12:12
[2020-04-20] MEDS ORDERED: Metoclopramide 10mg/2ml Inj ONE (12:39)
[2020-04-20] MEDS ORDERED: Lidocaine 1% MPF 10mg/ml 5ml ONE (12:39)
--- NOTE | 2020-04-20 12:39 | Nephrology Progress Note ---
Assessment/Plan Problem List: (1) Kidney stone (2) Renal insufficiency (3) HTN (hypertension) Assessment Renal failure: Most likely acute on chronic. History of hypertension. Possible hypertensive nephrosclerosis. Right UV junction 3.4 mm stone. Course on melatonin Plan Due for urological procedure today Hydrate Flomax The blood pressure in check Check hemoglobin A1c: Within normal limits Pain medication Per orders CT IMPRESSION: 1. Right-sided hydronephrosis due to a 3.4 mm stone at the right UV junction. 2. No acute appendicitis. No bowel obstruction. Subjective ROS Limited/Unobtainable: No Constitutional: Reports: malaise Objective Objective Last 24 Hour Vital Signs Date Time Temp Pulse Resp B/P (MAP) Pulse Ox O2 Delivery O2 Flow Rate FiO2 04/20/20 09:00 Room Air 04/20/20 08:00 98.0 79 20 123/74 (90) 96 04/20/20 04:00 96.3 90 20 132/77 (95) 96 04/20/20 00:00 97.9 82 18 125/79 (94) 95 04/19/20 20:53 Room Air 04/19/20 20:00 98.4 98 20 136/80 (98) 94 04/19/20 16:00 97.2 81 18 116/72 (87) 94 Intake and Output 04/19/20 04/20/20 19:00 07:00 Intake Total 1005 ml 885 ml Balance 1005 ml 885 ml Intake Oral 480 ml IV Total 525 ml 525 ml Other 360 ml # Voids 3 2 Laboratory Tests 04/20/20 05:40: White Blood Count 3.6L, Red Blood Count 4.13L, Hemoglobin 12.7L, Hematocrit 39.0L, Mean Corpuscular Volume 94, Mean Corpuscular Hemoglobin 30.6, Mean Corpuscular Hemoglobin Concent 32.5, Red Cell Distribution Width 11.8, Platelet Count 113L, Mean Platelet Volume 6.0L, Neutrophils (%) (Auto) 65.6, Lymphocytes (%) (Auto) 20.6, Monocytes (%) (Auto) 12.6H, Eosinophils (%) (Auto) 0.9, Basophils (%) (Auto) 0.4, Sodium Level 144, Potassium Level 4.0, Chloride Level 111H, Carbon Dioxide Level 28, Anion Gap 5, Blood Urea Nitrogen 13, Creatinine 1.3, Estimat Glomerular Filtration Rate 53.5, Glucose Level 105, Calcium Level 7.9L, Total Bilirubin 0.6, Aspartate Amino Transf (AST/SGOT) 43H, Alanine Aminotransferase (ALT/SGPT) 34, Alkaline Phosphatase 54, Total Protein 6.0L, Albumin 3.0L, Globulin 3.0, Albumin/Globulin Ratio 1.0, Hepatitis A IgM Antibody [Pending], Hepatitis B Surface Antigen [Pending], Hepatitis B Core IgM Antibody [Pending], Hepatitis C Antibody [Pending] Height (Feet): 5 Height (Inches): 5.00 Weight (Pounds): 148 General Appearance: no apparent distress Cardiovascular: other - Rate 80s Respiratory/Chest: decreased breath sounds Abdomen: soft Theron Coronel MD Apr 20, 2020 12:39
[2020-04-20] MEDS ORDERED: NS Irrig 2000ml IRRIG ONE (12:50)
[2020-04-20] MEDS ORDERED: ePHEDrine 50mg/ml Inj ONE (12:57)
--- NOTE | 2020-04-20 13:21 | Brief Operative Note ---
Immediate Post Operative Note Operative Note Pre-op Diagnosis: right ureteral and kidney stone Procedure: eswl rirs right Post-op Diagnosis: same Post-op Diagnosis: same as pre-op Surgeon: Contreras Treadwell Anesthesia: general Specimen: yes Complications: none Condition: stable Fluids: 500 Estimated Blood Loss: minimal Implant(s) used?: No Kavon Treadwell MD Apr 20, 2020 13:20
--- NOTE | 2020-04-20 13:28 | Immediate Post-Op Evaluation ---
Immediate Post-Op Evalulation Immediate Post-Op Evalulation Procedure: retrograde urethral sten Date of Evaluation: Apr 20, 2020 Time of Evaluation: 13:27 IV Fluids: 800 Blood Pressure Systolic: 149 Blood Pressure Diastolic: 50 Pulse Rate: 90 Respiratory Rate: 14 O2 Sat by Pulse Oximetry: 99 Temperature (Fahrenheit): 98.4 Nausea: No Vomiting: No Patient Status: awake, reacts, patent Hydration Status: adequate Drug: ancef Given Within 1 Hr of Incision: Yes Time Given: 13:27 Stephanie Florian CRNA Apr 20, 2020 13:28
[2020-04-20] MEDS ORDERED: Metoclopramide 10mg/2ml Inj IVP PRN (13:30)
[2020-04-20] MEDS ORDERED: fentaNYL 100 mcg/2 mL IV PRN (13:30)
[2020-04-20 14:35] LABS: BASOPHILS % (AUTO) 0.5 % (0.0-2.0); EOSINOPHILS % (AUTO) 0.5 % (0.0-3.0); HEMOGLOBIN 13.3 G/DL (14.2-18.0); LYMPHOCYTES % (AUTO) 25.8 % (20.0-45.0); MEAN CORPUSCULAR VOLUME 94 FL (80-99); NEUTROPHILS % (AUTO) 62.2 % (45.0-75.0); PLATELET COUNT 121 K/UL (150-450); RED BLOOD COUNT 4.34 M/UL (4.70-6.10); RED CELL DISTRIBUTION WIDTH 11.9 % (11.6-14.8); WHITE BLOOD COUNT 3.6 K/UL (4.8-10.8)
[2020-04-20 14:47] LABS: ANION GAP 10 mmol/L (5-15); BLOOD UREA NITROGEN 13 mg/dL (7-18); CALCIUM 8.4 MG/DL (8.5-10.1); CARBON DIOXIDE 25 MMOL/L (21-32); CHLORIDE 108 MMOL/L (98-107); CREATININE 1.2 MG/DL (0.55-1.30); POTASSIUM 3.6 MMOL/L (3.5-5.1); SODIUM 143 MMOL/L (136-145)
[2020-04-20] MEDS ORDERED: HYDROcodone/Acetamin 5/325 tab ORAL PRN (15:30)
[2020-04-20] MEDS ORDERED: HYDROmorphone 1mg/ml Carpuject IVP PRN (15:30)
[2020-04-20] MEDS: D5 1/2NS w/KCl 20mEq 1,000 ML IV SCH (16:49)
[2020-04-20] MEDS: Docusate 100mg cap ORAL SCH (17:34)
[2020-04-20] MEDS ORDERED: ceFAZolin sod 2 GM in D5W 110 ML IV SCH (21:30)
--- NOTE | 2020-04-20 21:45 | General Progress Note ---
Assessment/Plan Problem List: (1) Kidney stone ICD Codes: N20.0 - Calculus of kidney SNOMED: 90425699 (2) Renal insufficiency ICD Codes: N28.9 - Disorder of kidney and ureter, unspecified SNOMED: 391080704, 029379821 (3) Abdominal pain ICD Codes: R10.9 - Unspecified abdominal pain SNOMED: 37788009 (4) Thrombocytopenia ICD Codes: D69.6 - Thrombocytopenia, unspecified SNOMED: 366666300 Status: progressing Assessment/Plan: afebrile nac s/p removal of kidney stone flank pain reviewed chart nad labs Subjective ROS Limited/Unobtainable: Yes Allergies: Coded Allergies: No Known Allergies (Unverified , 04/18/20) Objective Last 24 Hour Vital Signs Date Time Temp Pulse Resp B/P (MAP) Pulse Ox O2 Delivery O2 Flow Rate FiO2 04/20/20 16:00 97.7 83 20 137/83 (101) 99 04/20/20 14:40 98.1 89 16 142/85 (104) 100 04/20/20 14:40 Room Air 04/20/20 14:30 97.9 87 19 144/84 100 Nasal Cannula 3 04/20/20 14:22 91 13 141/87 100 Nasal Cannula 3 04/20/20 14:07 89 14 144/84 100 Nasal Cannula 3 04/20/20 13:52 87 11 142/84 100 Simple Mask 6 04/20/20 13:42 90 15 145/79 100 Simple Mask 6 04/20/20 13:32 93 16 147/82 100 Simple Mask 6 04/20/20 13:28 90 14 99 04/20/20 13:27 93 15 149/84 100 Simple Mask 6 04/20/20 13:22 98.3 97 18 157/93 100 Simple Mask 6 04/20/20 09:00 Room Air 04/20/20 08:00 98.0 79 20 123/74 (90) 96 04/20/20 04:00 96.3 90 20 132/77 (95) 96 04/20/20 00:00 97.9 82 18 125/79 (94) 95 Intake and Output 04/19/20 04/20/20 19:00 07:00 Intake Total 1005 ml 885 ml Balance 1005 ml 885 ml Intake Oral 480 ml IV Total 525 ml 525 ml Other 360 ml # Voids 3 2 Laboratory Tests 04/20/20 05:40: White Blood Count 3.6L, Red Blood Count 4.13L, Hemoglobin 12.7L, Hematocrit 39.0L, Mean Corpuscular Volume 94, Mean Corpuscular Hemoglobin 30.6, Mean Corpuscular Hemoglobin Concent 32.5, Red Cell Distribution Width 11.8, Platelet Count 113L, Mean Platelet Volume 6.0L, Neutrophils (%) (Auto) 65.6, Lymphocytes (%) (Auto) 20.6, Monocytes (%) (Auto) 12.6H, Eosinophils (%) (Auto) 0.9, Basophils (%) (Auto) 0.4, Sodium Level 144, Potassium Level 4.0, Chloride Level 111H, Carbon Dioxide Level 28, Anion Gap 5, Blood Urea Nitrogen 13, Creatinine 1.3, Estimat Glomerular Filtration Rate 53.5, Glucose Level 105, Calcium Level 7.9L, Total Bilirubin 0.6, Aspartate Amino Transf (AST/SGOT) 43H, Alanine Aminotransferase (ALT/SGPT) 34, Alkaline Phosphatase 54, Total Protein 6.0L, Albumin 3.0L, Globulin 3.0, Albumin/Globulin Ratio 1.0, Hepatitis A IgM Antibody [Pending], Hepatitis B Surface Antigen [Pending], Hepatitis B Core IgM Antibody [Pending], Hepatitis C Antibody [Pending] 04/20/20 13:20: White Blood Count 3.6L, Red Blood Count 4.34L, Hemoglobin 13.3L, Hematocrit 41.0L, Mean Corpuscular Volume 94, Mean Corpuscular Hemoglobin 30.7, Mean Corpuscular Hemoglobin Concent 32.5, Red Cell Distribution Width 11.9, Platelet Count 121L, Mean Platelet Volume 6.5, Neutrophils (%) (Auto) 62.2, Lymphocytes ( %) (Auto) 25.8, Monocytes (%) (Auto) 11.0H, Eosinophils (%) (Auto) 0.5, Basophils (%) (Auto) 0.5, Sodium Level 143, Potassium Level 3.6, Chloride Level 108H, Carbon Dioxide Level 25, Anion Gap 10, Blood Urea Nitrogen 13, Creatinine 1.2, Estimat Glomerular Filtration Rate 58.7, Glucose Level 110H, Calcium Level 8.4L Height (Feet): 5 Height (Inches): 5.00 Weight (Pounds): 148 John Mason MD Apr 20, 2020 21:45
[2020-04-20] MEDS: ceFAZolin 2gm/D5W 50ml Premix IV SCH (22:01)
[2020-04-21] VITALS: BP 128/74
[2020-04-21] MEDS: D5NS 1,000 ML IV SCH (02:40)
[2020-04-21] MEDS: D5 1/2NS w/KCl 20mEq 1,000 ML IV SCH ×3 (02:46→21:03)
[2020-04-21 04:00] VITALS: BP 147/83
[2020-04-21] MEDS: ceFAZolin 2gm/D5W 50ml Premix IV SCH (05:02)
[2020-04-21 06:28] LABS: BASOPHILS % (AUTO) 0.5 % (0.0-2.0); EOSINOPHILS % (AUTO) 1.2 % (0.0-3.0); HEMATOCRIT 37.7 % (42.0-52.0); HEMOGLOBIN 12.5 G/DL (14.2-18.0); LYMPHOCYTES % (AUTO) 19.9 % (20.0-45.0); MEAN CORPUSCULAR VOLUME 93 FL (80-99); NEUTROPHILS % (AUTO) 66.4 % (45.0-75.0); PLATELET COUNT 132 K/UL (150-450); RED BLOOD COUNT 4.04 M/UL (4.70-6.10); RED CELL DISTRIBUTION WIDTH 11.8 % (11.6-14.8); WHITE BLOOD COUNT 4.5 K/UL (4.8-10.8)
--- NOTE | 2020-04-21 06:58 | General Progress Note ---
Assessment/Plan Problem List: (1) Abdominal pain ICD Codes: R10.9 - Unspecified abdominal pain SNOMED: 08112533 (2) Renal insufficiency ICD Codes: N28.9 - Disorder of kidney and ureter, unspecified SNOMED: 895641626, 656080862 (3) Kidney stone ICD Codes: N20.0 - Calculus of kidney SNOMED: 69419882 (4) Thrombocytopenia ICD Codes: D69.6 - Thrombocytopenia, unspecified SNOMED: 422358917 Status: progressing Assessment/Plan: us reviewed s/p procedure for kidney stone yesterday repeat labs pain control will fu Subjective ROS Limited/Unobtainable: Yes Allergies: Coded Allergies: No Known Allergies (Unverified , 04/18/20) Objective Last 24 Hour Vital Signs Date Time Temp Pulse Resp B/P (MAP) Pulse Ox O2 Delivery O2 Flow Rate FiO2 04/21/20 04:00 97.5 77 18 147/83 (104) 96 04/21/20 00:00 97.2 72 19 128/74 (92) 98 04/20/20 21:00 Room Air 04/20/20 20:00 96.6 84 19 149/83 (105) 96 04/20/20 16:00 97.7 83 20 137/83 (101) 99 04/20/20 14:40 98.1 89 16 142/85 (104) 100 04/20/20 14:40 Room Air 04/20/20 14:30 97.9 87 19 144/84 100 Nasal Cannula 3 04/20/20 14:22 91 13 141/87 100 Nasal Cannula 3 04/20/20 14:07 89 14 144/84 100 Nasal Cannula 3 04/20/20 13:52 87 11 142/84 100 Simple Mask 6 04/20/20 13:42 90 15 145/79 100 Simple Mask 6 04/20/20 13:32 93 16 147/82 100 Simple Mask 6 04/20/20 13:28 90 14 99 04/20/20 13:27 93 15 149/84 100 Simple Mask 6 04/20/20 13:22 98.3 97 18 157/93 100 Simple Mask 6 04/20/20 09:00 Room Air 04/20/20 08:00 98.0 79 20 123/74 (90) 96 Intake and Output 04/20/20 04/21/20 19:00 07:00 Intake Total 1525 ml 900 ml Output Total 1520 ml 900 ml Balance 5 ml 0 ml IV Total 1525 ml 900 ml Output Urine Total 1500 ml 900 ml Estimated Blood Loss 20 ml # Voids 1 1 Laboratory Tests 04/20/20 13:20: White Blood Count 3.6L, Red Blood Count 4.34L, Hemoglobin 13.3L, Hematocrit 41.0L, Mean Corpuscular Volume 94, Mean Corpuscular Hemoglobin 30.7, Mean Corpuscular Hemoglobin Concent 32.5, Red Cell Distribution Width 11.9, Platelet Count 121L, Mean Platelet Volume 6.5, Neutrophils (%) (Auto) 62.2, Lymphocytes ( %) (Auto) 25.8, Monocytes (%) (Auto) 11.0H, Eosinophils (%) (Auto) 0.5, Basophils (%) (Auto) 0.5, Sodium Level 143, Potassium Level 3.6, Chloride Level 108H, Carbon Dioxide Level 25, Anion Gap 10, Blood Urea Nitrogen 13, Creatinine 1.2, Estimat Glomerular Filtration Rate 58.7, Glucose Level 110H, Calcium Level 8.4L 04/21/20 05:22: White Blood Count 4.5L, Red Blood Count 4.04L, Hemoglobin 12.5L, Hematocrit 37.7L, Mean Corpuscular Volume 93, Mean Corpuscular Hemoglobin 30.8, Mean Corpuscular Hemoglobin Concent 33.0, Red Cell Distribution Width 11.8, Platelet Count 132L, Mean Platelet Volume 6.3L, Neutrophils (%) (Auto) 66.4, Lymphocytes (%) (Auto) 19.9L, Monocytes (%) (Auto) 12.0H, Eosinophils (%) (Auto) 1.2, Basophils (%) (Auto) 0.5, Sodium Level [Pending], Potassium Level [Pending], Chloride Level [Pending], Carbon Dioxide Level [Pending], Blood Urea Nitrogen [ Pending], Creatinine [Pending], Estimat Glomerular Filtration Rate [Pending], Glucose Level [Pending], Calcium Level [Pending], Uric Acid [Pending], Phosphorus Level [Pending], Magnesium Level [Pending], Total Bilirubin [Pending] , Aspartate Amino Transf (AST/SGOT) [Pending], Alanine Aminotransferase (ALT/ SGPT) [Pending], Alkaline Phosphatase [Pending], Total Protein [Pending], Albumin [Pending], Globulin [Pending] Height (Feet): 5 Height (Inches): 5.00 Weight (Pounds): 148 General Appearance: alert EENT: normal ENT inspection Neck: supple Cardiovascular: normal rate Respiratory/Chest: decreased breath sounds Abdomen: normal bowel sounds, non tender, soft Extremities: non-tender Hardik Ventura MD Apr 21, 2020 06:58
[2020-04-21 07:00] LABS: ALANINE AMINOTRANSFERASE 31 U/L (12-78); ALBUMIN 2.9 G/DL (3.4-5.0); ALKALINE PHOSPHATASE 56 U/L (46-116); ANION GAP 7 mmol/L (5-15); ASPARTATE AMINO TRANSFERASE 35 U/L (15-37); BILIRUBIN,TOTAL 0.5 MG/DL (0.2-1.0); BLOOD UREA NITROGEN 10 mg/dL (7-18); CALCIUM 8.1 MG/DL (8.5-10.1); CARBON DIOXIDE 27 MMOL/L (21-32); CHLORIDE 107 MMOL/L (98-107); PHOSPHORUS 3.3 MG/DL (2.5-4.9); POTASSIUM 3.5 MMOL/L (3.5-5.1); SODIUM 141 MMOL/L (136-145)
[2020-04-21 08:00] VITALS: BP 122/79
[2020-04-21] MEDS: Docusate 100mg cap ORAL SCH ×2 (09:16→18:39)
[2020-04-21] MEDS: Tamsulosin 0.4mg cap ORAL SCH ×2 (09:16→18:39)
--- NOTE | 2020-04-21 10:06 | Nephrology Progress Note ---
Assessment/Plan Problem List: (1) Kidney stone (2) Renal insufficiency (3) HTN (hypertension) Assessment Renal failure: Most likely acute on chronic. History of hypertension. Possible hypertensive nephrosclerosis. Right UV junction 3.4 mm stone. Course on melatonin Plan Due for urological procedure today Hydrate Flomax The blood pressure in check Check hemoglobin A1c: Within normal limits Pain medication Per orders CT IMPRESSION: 1. Right-sided hydronephrosis due to a 3.4 mm stone at the right UV junction. 2. No acute appendicitis. No bowel obstruction. Subjective ROS Limited/Unobtainable: No Objective Objective Last 24 Hour Vital Signs Date Time Temp Pulse Resp B/P (MAP) Pulse Ox O2 Delivery O2 Flow Rate FiO2 04/21/20 09:00 Room Air 04/21/20 08:00 97.8 106 18 122/79 (93) 96 04/21/20 04:00 97.5 77 18 147/83 (104) 96 04/21/20 00:00 97.2 72 19 128/74 (92) 98 04/20/20 21:00 Room Air 04/20/20 20:00 96.6 84 19 149/83 (105) 96 04/20/20 16:00 97.7 83 20 137/83 (101) 99 04/20/20 14:40 98.1 89 16 142/85 (104) 100 04/20/20 14:40 Room Air 04/20/20 14:30 97.9 87 19 144/84 100 Nasal Cannula 3 04/20/20 14:22 91 13 141/87 100 Nasal Cannula 3 04/20/20 14:07 89 14 144/84 100 Nasal Cannula 3 04/20/20 13:52 87 11 142/84 100 Simple Mask 6 04/20/20 13:42 90 15 145/79 100 Simple Mask 6 04/20/20 13:32 93 16 147/82 100 Simple Mask 6 04/20/20 13:28 90 14 99 04/20/20 13:27 93 15 149/84 100 Simple Mask 6 04/20/20 13:22 98.3 97 18 157/93 100 Simple Mask 6 Intake and Output 04/20/20 04/21/20 19:00 07:00 Intake Total 1525 ml 1000 ml Output Total 1520 ml 900 ml Balance 5 ml 100 ml IV Total 1525 ml 1000 ml Output Urine Total 1500 ml 900 ml Estimated Blood Loss 20 ml # Voids 1 1 Laboratory Tests 04/20/20 13:20: White Blood Count 3.6L, Red Blood Count 4.34L, Hemoglobin 13.3L, Hematocrit 41.0L, Mean Corpuscular Volume 94, Mean Corpuscular Hemoglobin 30.7, Mean Corpuscular Hemoglobin Concent 32.5, Red Cell Distribution Width 11.9, Platelet Count 121L, Mean Platelet Volume 6.5, Neutrophils (%) (Auto) 62.2, Lymphocytes ( %) (Auto) 25.8, Monocytes (%) (Auto) 11.0H, Eosinophils (%) (Auto) 0.5, Basophils (%) (Auto) 0.5, Sodium Level 143, Potassium Level 3.6, Chloride Level 108H, Carbon Dioxide Level 25, Anion Gap 10, Blood Urea Nitrogen 13, Creatinine 1.2, Estimat Glomerular Filtration Rate 58.7, Glucose Level 110H, Calcium Level 8.4L 04/21/20 05:22: White Blood Count 4.5L, Red Blood Count 4.04L, Hemoglobin 12.5L, Hematocrit 37.7L, Mean Corpuscular Volume 93, Mean Corpuscular Hemoglobin 30.8, Mean Corpuscular Hemoglobin Concent 33.0, Red Cell Distribution Width 11.8, Platelet Count 132L, Mean Platelet Volume 6.3L, Neutrophils (%) (Auto) 66.4, Lymphocytes (%) (Auto) 19.9L, Monocytes (%) (Auto) 12.0H, Eosinophils (%) (Auto) 1.2, Basophils (%) (Auto) 0.5, Sodium Level 141, Potassium Level 3.5, Chloride Level 107, Carbon Dioxide Level 27, Anion Gap 7, Blood Urea Nitrogen 10, Creatinine 1.0, Estimat Glomerular Filtration Rate > 60, Glucose Level 109H, Calcium Level 8.1L, Uric Acid 4.4, Phosphorus Level 3.3, Magnesium Level 2.1, Total Bilirubin 0.5, Aspartate Amino Transf (AST/SGOT) 35, Alanine Aminotransferase (ALT/SGPT) 31, Alkaline Phosphatase 56, Total Protein 5.9L, Albumin 2.9L, Globulin 3.0, Albumin/Globulin Ratio 1.0 Height (Feet): 5 Height (Inches): 5.00 Weight (Pounds): 148 General Appearance: no apparent distress Cardiovascular: tachycardia Respiratory/Chest: lungs clear Abdomen: soft Genitourinary/Rectal: other - Butts catheter in place. Urine bloody. Theron Coronel MD Apr 21, 2020 10:06
--- NOTE | 2020-04-21 10:50 | 48 Hour Post Anesthesia Eval ---
Post Anesthesia Evaluation Procedure: retrograde urethral sten Date of Evaluation: Apr 21, 2020 Time of Evaluation: 10:49 Blood Pressure Systolic: 124 0: 76 Pulse Rate: 68 Respiratory Rate: 16 Temperature (Fahrenheit): 97.5 O2 Sat by Pulse Oximetry: 98 Airway: patent Nausea: No Vomiting: No Pain Intensity: 2 Hydration Status: adequate Cardiopulmonary Status: stable Mental Status/LOC: patient returned to baseline Follow-up Care/Observations: n/a Post-Anesthesia Complications: none Follow-up care needed: N/A Keegan Tejada MD Apr 21, 2020 10:50
[2020-04-21 12:00] VITALS: BP 129/79
[2020-04-21 16:00] VITALS: BP 126/74
[2020-04-21 20:00] VITALS: BP 147/82
--- NOTE | 2020-04-21 21:29 | General Progress Note ---
Assessment/Plan Problem List: (1) Kidney stone ICD Codes: N20.0 - Calculus of kidney SNOMED: 49198758 (2) Renal insufficiency ICD Codes: N28.9 - Disorder of kidney and ureter, unspecified SNOMED: 601688988, 370863193 (3) Abdominal pain ICD Codes: R10.9 - Unspecified abdominal pain SNOMED: 80399411 (4) Thrombocytopenia ICD Codes: D69.6 - Thrombocytopenia, unspecified SNOMED: 475106097 Status: progressing Assessment/Plan: urologist wants to wait overnight before dc restrepo per urologist s/p removal of kidney stone flank pain reviewed chart nad labs Subjective ROS Limited/Unobtainable: Yes Allergies: Coded Allergies: No Known Allergies (Unverified , 04/18/20) Objective Last 24 Hour Vital Signs Date Time Temp Pulse Resp B/P (MAP) Pulse Ox O2 Delivery O2 Flow Rate FiO2 04/21/20 16:00 97.7 79 17 126/74 (91) 95 04/21/20 12:00 97.9 79 18 129/79 (96) 96 04/21/20 10:50 68 16 98 04/21/20 09:00 Room Air 04/21/20 08:00 97.8 106 18 122/79 (93) 96 04/21/20 04:00 97.5 77 18 147/83 (104) 96 04/21/20 00:00 97.2 72 19 128/74 (92) 98 Intake and Output 04/20/20 04/21/20 19:00 07:00 Intake Total 1525 ml 1000 ml Output Total 1520 ml 900 ml Balance 5 ml 100 ml IV Total 1525 ml 1000 ml Output Urine Total 1500 ml 900 ml Estimated Blood Loss 20 ml # Voids 1 1 Laboratory Tests 04/21/20 05:22: White Blood Count 4.5L, Red Blood Count 4.04L, Hemoglobin 12.5L, Hematocrit 37.7L, Mean Corpuscular Volume 93, Mean Corpuscular Hemoglobin 30.8, Mean Corpuscular Hemoglobin Concent 33.0, Red Cell Distribution Width 11.8, Platelet Count 132L, Mean Platelet Volume 6.3L, Neutrophils (%) (Auto) 66.4, Lymphocytes (%) (Auto) 19.9L, Monocytes (%) (Auto) 12.0H, Eosinophils (%) (Auto) 1.2, Basophils (%) (Auto) 0.5, Sodium Level 141, Potassium Level 3.5, Chloride Level 107, Carbon Dioxide Level 27, Anion Gap 7, Blood Urea Nitrogen 10, Creatinine 1.0, Estimat Glomerular Filtration Rate > 60, Glucose Level 109H, Uric Acid 4.4 , Calcium Level 8.1L, Phosphorus Level 3.3, Magnesium Level 2.1, Total Bilirubin 0.5, Aspartate Amino Transf (AST/SGOT) 35, Alanine Aminotransferase ( ALT/SGPT) 31, Alkaline Phosphatase 56, Total Protein 5.9L, Albumin 2.9L, Globulin 3.0, Albumin/Globulin Ratio 1.0 Height (Feet): 5 Height (Inches): 5.00 Weight (Pounds): 148 John Mason MD Apr 21, 2020 21:29
--- NOTE | 2020-04-21 23:15 | Operative Note - Dictated ---
DATE OF OPERATION: 04/20/2020 PREOPERATIVE DIAGNOSIS: Right ureteral stone. POSTOPERATIVE DIAGNOSIS: Right ureteral stone. OPERATION: Cystoscopy, retrograde pyelogram, double-J stent placement, extracorporeal shock wave lithotripsy, and retrograde intrarenal surgery of the right ureteral stone. CERTIFIED MEDICAL TECHNICIAN: Kavon Treadwell MD. ANESTHESIA: General. FINDINGS: Enlarged prostate obstructing right ureteral stone. INDICATIONS FOR SURGERY: The patient presented to the emergency room with right renal colic and found to have a 3.5 mm stone in the mid right ureter. Treatment options were explained to him in great length including all potential complications. He signed a consent. DESCRIPTION OF PROCEDURE: He was brought to the operative room, placed in lithotomy position, prepped and draped in standard fashion. Under general anesthesia, cystoscope was introduced into the bladder. Right ureter was cannulated with open tipped catheter and a guidewire was placed and bypassed the stone. Using semi-rigid ureteroscope, stone was found in the mid ureter. It was was grasped with a Nitinol basket and removed for pathologic examination. Double-J stent 26 cm x 6-Algerian was placed and left indwelling. The patient tolerated procedure well. No evidence of complications. Kavon Treadwell M.D. DR: Lakisha JOB#: [id number] CC:
[2020-04-22] VITALS: BP 147/88
[2020-04-22 04:00] VITALS: BP 137/89
[2020-04-22 08:00] VITALS: BP 142/79
[2020-04-22] MEDS: Docusate 100mg cap ORAL SCH (08:05)
[2020-04-22] MEDS: Tamsulosin 0.4mg cap ORAL SCH (08:05)
[2020-04-22] MEDS: D5 1/2NS w/KCl 20mEq 1,000 ML IV SCH (08:06)
--- NOTE | 2020-04-22 09:24 | General Progress Note ---
Assessment/Plan Problem List: (1) Abdominal pain ICD Codes: R10.9 - Unspecified abdominal pain SNOMED: 12856888 (2) Renal insufficiency ICD Codes: N28.9 - Disorder of kidney and ureter, unspecified SNOMED: 820445133, 462629919 (3) Kidney stone ICD Codes: N20.0 - Calculus of kidney SNOMED: 06424446 (4) Thrombocytopenia ICD Codes: D69.6 - Thrombocytopenia, unspecified SNOMED: 708708392 Status: progressing Assessment/Plan: us reviewed s/p procedure for kidney stone repeat labs pain control will fu Subjective Allergies: Coded Allergies: No Known Allergies (Unverified , 04/18/20) Objective Last 24 Hour Vital Signs Date Time Temp Pulse Resp B/P (MAP) Pulse Ox O2 Delivery O2 Flow Rate FiO2 04/22/20 08:00 97.3 71 20 142/79 (100) 96 04/22/20 04:00 98.5 78 18 137/89 (105) 96 04/22/20 00:00 98.2 76 18 147/88 (107) 95 04/21/20 21:00 Room Air 04/21/20 20:00 97.9 75 18 147/82 (103) 95 04/21/20 16:00 97.7 79 17 126/74 (91) 95 04/21/20 12:00 97.9 79 18 129/79 (96) 96 04/21/20 10:50 68 16 98 Intake and Output 04/21/20 04/22/20 19:00 07:00 Intake Total 1220 ml Output Total 1100 ml Balance 1220 ml -1100 ml Intake Oral 720 ml IV Total 500 ml Output Urine Total 1100 ml # Voids 1 Height (Feet): 5 Height (Inches): 5.00 Weight (Pounds): 148 General Appearance: alert EENT: normal ENT inspection Neck: supple Cardiovascular: normal rate Respiratory/Chest: decreased breath sounds Abdomen: normal bowel sounds, non tender, soft Extremities: non-tender Hardik Ventura MD Apr 22, 2020 09:24
--- NOTE | 2020-04-22 09:35 | Nephrology Progress Note ---
Assessment/Plan Problem List: (1) Kidney stone (2) Renal insufficiency (3) HTN (hypertension) Assessment Renal failure: Most likely acute on chronic. History of hypertension. Possible hypertensive nephrosclerosis. Right UV junction 3.4 mm stone. Course on melatonin Plan April 22: Status quo. Continue per your advice. Will check lab tomorrow. Previously: Due for urological procedure today Hydrate Flomax The blood pressure in check Check hemoglobin A1c: Within normal limits Pain medication Per orders CT IMPRESSION: 1. Right-sided hydronephrosis due to a 3.4 mm stone at the right UV junction. 2. No acute appendicitis. No bowel obstruction. Subjective ROS Limited/Unobtainable: No Constitutional: Reports: malaise Objective Objective Last 24 Hour Vital Signs Date Time Temp Pulse Resp B/P (MAP) Pulse Ox O2 Delivery O2 Flow Rate FiO2 04/22/20 09:23 Room Air 04/22/20 08:00 97.3 71 20 142/79 (100) 96 04/22/20 04:00 98.5 78 18 137/89 (105) 96 04/22/20 00:00 98.2 76 18 147/88 (107) 95 04/21/20 21:00 Room Air 04/21/20 20:00 97.9 75 18 147/82 (103) 95 04/21/20 16:00 97.7 79 17 126/74 (91) 95 04/21/20 12:00 97.9 79 18 129/79 (96) 96 04/21/20 10:50 68 16 98 Intake and Output 04/21/20 04/22/20 19:00 07:00 Intake Total 1220 ml Output Total 1100 ml Balance 1220 ml -1100 ml Intake Oral 720 ml IV Total 500 ml Output Urine Total 1100 ml # Voids 1 No labs for today. Height (Feet): 5 Height (Inches): 5.00 Weight (Pounds): 148 General Appearance: no apparent distress Cardiovascular: normal rate Respiratory/Chest: lungs clear Abdomen: soft Genitourinary/Rectal: other - Butts catheter contains bloody urine Theron Coronel MD Apr 22, 2020 09:35
[2020-04-22] MEDS ORDERED: LEVAQUIN500 MG ORAL (10:21)
[2020-04-22] MEDS ORDERED: COLACE100 MG ORAL (10:22)
[2020-04-22 12:01] VITALS: BP 134/78
--- NOTE | 2020-04-24 15:39 | Discharge Summary ---
Discharge Summary Discharge Summary _ DATE OF ADMISSION: 04/18/2020 DATE OF DISCHARGE: 04/22/2020 DISCHARGED BY: Dr. John Hinds CONSULTANTS: Dr. Theron Treadwell [facility]: The patient is a 79-year-old male, who presented to ED due to abdominal pain and vomiting. Symptoms started on the day of arrival. Pain was described to be on the lower abdomen, dull, 9 out of 10, nonradiating. He also has pain on urination. He denied fever or chills. Denied chest pain or shortness of breath. Denied diarrhea. There was no aggravating or relieving factors. He has medical history significant for hypertension. Upon evaluation at the ED, blood work did not show any leukocytosis. Creatinine was elevated to 1.7. LFTs normal. Urinalysis showed 4+ blood, negative leukocyte esterase, 0-2 urine RBC and [address] of the abdomen and pelvis with contrast showed right-sided hydronephrosis with a 2.4 mm stone at the right UV junction. No acute appendicitis. No bowel obstruction. Patient was then admitted for evaluation renal insufficiency and kidney stone. He was admitted to medical floor. He was given pain management and IV hydration. He was given Flomax. He was observed off antibiotics. Abdominal ultrasound showed liver and spleen to be homogeneous. Gallbladder without sludge or stone. Right hydronephrosis. Left kidney unremarkable. On April 20, 2020, he underwent cystoscopy, retrograde pyelogram, double-J stent placement and extracorporeal shockwave lithotripsy on the right ureteral stone. Patient tolerated procedure well. Kidney function improved. Patient was cleared for discharge. Advised to follow -up with urologist as outpatient. FINAL DIAGNOSES: Acute on chronic renal failure Right hydronephrosis due to obstructive uropathy Status post extracorporeal shockwave lithotripsy and stent placement on the right ureteral stone. Hypertension with possible hypertensive nephrosclerosis Thrombocytopenia DISPOSITION: Patient was discharged home. DISCHARGE MEDICATIONS: Refer to Discharge Medication List. DISCHARGE INSTRUCTIONS: Follow-up in a week. I have been assigned to complete a discharge summary on this account, I was not involved with the patient's management.--DORIS Brian Jacqueline Robles NP Apr 24, 2020 15:39
== END 2020-04-22 15:44 | disposition home or self-care (01) | DRG 661 ==
LOC: EMR 20:50 → 4E 21:46 → EDBEDREQ 22:25
DX: N13.2 Hydronephrosis with renal and ureteral calculous obstruction (principal); N17.9 Acute kidney failure, unspecified; I12.9 Hypertensive chronic kidney disease with stage 1 through stage 4 chronic kidney disease, or unspecified chronic kidney disease; N18.9 Chronic kidney disease, unspecified; F41.9 Anxiety disorder, unspecified; D69.6 Thrombocytopenia, unspecified
CPT/HCPCS: 36415; 74176; 76700; 80048; 80053; 80061; 81003; 83036; 83690; 83735; 83880; 84100; 84443; 84550; 85025; 86140; 86705; 86709; 86803; 87340; 94003; 94150; 96374; 96375; 99285; J2405; J2765; J7030; U0002